=== PATIENT | male | born 1980 | race Hispanic/Latino ===

== ENCOUNTER 2016-08-02 11:43 | Observation (INO) | payer OTHER ==
[2016-08-02] VITALS (13 sets, daily range): BP systolic 103–142; BP diastolic 44–88; PULSE 74–88; RESP 14–22; O2SAT 96–100
[~2016-08-02] VITALS: Ht 170.2 cm; Wt 100.0 kg
[~2016-08-02 11:43] MED LIST: Glycopyrrolate 0.2 MG/ML 1mL Inj ONE; Neostigmine 1 mg/mL 10 mL Inj ONE; Ondansetron 2 mg/mL 2 mL Inj ONE; Propofol 10,000 mCg/mL 20 mL Inj ONE; fentaNYL-PF 50 mCg/mL 2 mL Inj ONE
[2016-08-02] MEDS ORDERED: 0.9% Sodium Chloride 1,000 ML IV ONE (11:58)
[2016-08-02] MEDS ORDERED: Ondansetron 2 mg/mL 2 mL Inj ONE (11:58)
--- NOTE | 2016-08-02 11:58 | ED.REPORT ---
HPI-Abd Pain M Under 38 Date of Service Aug 02, 2016 ED Provider: Favio Verduzco MD The patient is an otherwise healthy 35 year old male who presents to the emergency department complaining of diffuse abdominal pain that began suddenly yesterday evening around 1700. His pain is located to his RLQ. He describes the pain as cramping and sharp. His pain has been constant. Since onset he has also experienced nausea, vomiting, diarrhea, decreased appetite, and difficulty urinating. He is unable to keep anything down including liquids. He had similar symptoms a few years ago and was evaluated but no dangerous cause was found. He has not had any previous abdominal surgeries. Nursing Notes Stated Complaint: ABDOMINAL PAIN Chief Complaint: Male Abdominal Pain Nursing Notes Reviewed: Yes Allergies: Coded Allergies: No Known Allergies (Verified Allergy, Unknown, 08/02/16) No Active Prescriptions or Reported Meds General Time Seen by MD: 11:58 Chief Complaint Abdominal pain Hx Obtained From: Patient, Spouse Arrived By: Walk-in Sudden in Onset?: Yes Onset Occurred: Yesterday Symptom Duration: Since onset Progression since Onset: Constant, Gradually worsening Location: : Diffuse Quality: Painful Radiation: : Does not radiate Severity: Current: Moderate Severity: Maximum: Moderate Associated with: Reports: Anorexia, Diarrhea, Vomiting Additional Notes: +difficulty urinating Pertinent Negative: Pt denies other symptoms Recent Healthcare: No recent doctor visit, No recent hospitalization Similar Sx Previous: Yes Past Medical History Past Medical History Notes: No PCP Past Medical History denies Past Surgical History denies Family History Noncontributory Smoking History Never Smoker Social History Alcohol Use: "Social" Drug Use: Denies drug use Other Social History: Good social support, , Lives with children, Local resident Ambulatory Status Independent Review of Systems Review of Systems Note: +difficulty urinating GI: Reports: Abdominal pain, Anorexia, Diarrhea, Nausea, Vomiting Complete sys rev & neg: except as marked. Physical Exam Initial Vital Signs Vital Signs (First) Date Time Temp Pulse Resp B/P Pulse Ox O2 Delivery O2 Flow Rate FiO2 08/02/16 11:45 35.9 83 16 129/81 99 Room Air Initial VS: Reviewed Head / Eyes: Atraumatic, Normocephalic, PERRL ENT: Mucous membranes moist, Conjunctiva normal, No scleral icterus Neck: Supple, Non-tender, Full range of motion Lymphatic: No lymphadenopathy Extremities: Vascular intact, Neuro intact, No swelling, No tenderness Skin: Warm, Dry, No cyanosis Neurologic: Alert, Oriented, Nonfocal Psychiatric: Mood/affect normal, Behavior normal, Normal thought content General/Constitutional: Awake, Alert, No acute distress, Well appearing Respiratory / Chest: Atraumatic, Breath sounds NL, Breath sounds = bilat, No respiratory distress, No rales, No rhonchi, No wheezing, No stridor Cardiovascular: Heart rate NL, Regular rhythm, Heart sounds NL, No murmurs, No rubs, Peripheral circulation NL Abdomen: Soft, No guarding, No rebound, BS normoactive, No distention, No hernia, No palpable mass, No pulsatile mass Tenderness/Guarding/Rebound: Positive: Tender RLQ... (tenderness is most notable in the RLQ), Tender diffuse (mild) Back: Inspection NL, Non-tender, No CVA tenderness Male Genitourinary: Atraumatic, Inspection NL, Penis NL, No meatal blood, Testes NL Uncircumcised penis. Lower Extremity / Pelvis / MS: Neurologic intact, Vascular intact, No edema, Gait NL No calf swelling or tenderness Interpretation & Diagnostics Lab Results Interpretation Result Diagram: 08/02/16 1155 08/02/16 1155 Test 08/02/16 11:55 08/02/16 12:31 White Blood Count 12.6th/mm3 (3.8-10.1) Red Blood Count 5.21mil/mm3 (4.40-5.80) Hemoglobin 15.1g/dL (13.8-17.2) Hematocrit 43.8% (41.0-50.0) Mean Corpuscular Volume 84.1fL (81-100) Mean Corpuscular Hemoglobin 29.0pg (27.0-35.0) Mean Corpuscular Hemoglobin Concent 34.5% (32.0-37.0) Red Cell Distribution Width 12.3% (12.3-15.4) Platelet Count 295bil/L (150-400) Neutrophils (%) (Auto) 87.6% (40-74) Lymphocytes (%) (Auto) 9.1% (14-46) Monocytes (%) (Auto) 2.8% (4-12) Eosinophils (%) (Auto) 0% (0-5) Basophils (%) (Auto) 0.1% (0-3) Sodium Level 135mEq/L (134-144) Potassium Level 3.8mEq/L (3.5-5.2) Chloride Level 94mEq/L (97-108) Carbon Dioxide Level 22mmol/L (18-29) Blood Urea Nitrogen 16mg/dL (6-20) Creatinine 0.86mg/dL (0.76-1.27) Estimat Glomerular Filtration Rate 106mL/min (>59) Glucose Level 159mg/dL (60-99) Calcium Level 9.3mg/dL (8.5-10.1) Magnesium Level 2.2mg/dL (1.6-2.6) Total Bilirubin 0.6mg/dL (0.0-1.2) Aspartate Amino Transf (AST/SGOT) 26U/L (0-50) Alanine Aminotransferase (ALT/SGPT) 59U/L (0-44) Alkaline Phosphatase 70U/L (25-150) Total Protein 8.2g/dL (6.4-8.4) Albumin 4.6g/dL (3.4-5.0) Lipase 459U/L (13-60) Hold Celestin Top Tube Received (Received) Urine Color Yellow (YELLOW) Urine Appearance Hazy (CLEAR,HAZY) Urine pH 7.0 (5.0-8.0) Urine Specific [place] 1.020 (1.003-1.035) Urine Protein Negativemg/dL (NEG,TRACE) Urine Glucose (UA) Negativemg/dL (NEGATIVE) Urine Ketones Negativemg/dL (NEGATIVE) Urine Occult Blood Negative (NEGATIVE) Urine Nitrite Negative (NEGATIVE) Urine Bilirubin Negative (NEGATIVE) Urine Urobilinogen Normalmg/dL (NORMAL) Urine Leukocyte Esterase Negative (NEGATIVE) Urine RBC 3-10/hpf (0-2) Urine WBC 0-5/hpf (0-5) Urine Epithelial Cells Occasional/hpf (NONE-MOD) Urine Crystals None seen (NONE SEEN) Urine Bacteria None/hpf (NONE-FEW) Urine Hyaline Casts None/lpf (NONE) Urine Granular Casts None seen (NONE SEEN) Urine Waxy Casts None seen (NONE SEEN) Urine Red Blood Cell Casts None seen (NONE SEEN) Urine White Blood Cell Casts None seen (NONE SEEN) Urine Mucus Present (None Seen) Urine Trichomonas None seen (NONE SEEN) Urine Yeast None (NONE SEEN) Urinalysis Comment None Urine Culture Reflexed Not indicated CT Abd / Pelvis Interpretation IMPRESSION: 1. Findings compatible with acute appendicitis. 2. Hepatic steatosis. Dictated by: Radha Pineda MD, PhD on 08/02/2016 at 14:28 Study type: Abdominal CT IV contrast Interpretation / Wet Read by: Interpret - Radiologist, Discussed w radiologist Re-Eval/Medical Decision Med Decision/Clinical Course In summary, the patient is a 35-year-old male with no significant past medical history who presents to the emergency department complaining of nausea, vomiting and right lower quadrant pain. Upon arrival he was afebrile stable vital signs and examination as above. Treated with IVF, Zofran, and Dilaudid, he reported moderate symptomatic improvement. Labs: leukocytosis of 12.6, CBC otherwise unremarkable, LOCOMOTIVE DRIVER unremarkable except mildly elevated ALT of 59, lipase elevated at 459, UA unconvincing for UTI. Bladder scan shows about [address] scan of the abdomen and pelvis demonstrated evidence of acute appendicitis with associated appendicolith. Spoke with the on-call surgeon, Dr. Reinoso. He will come and evaluate the patient and recommends starting him on Unasyn. He has been made nothing by mouth and is maintained on maintenance fluids. To be taken directly to the operating room for appendectomy. He was admitted to the surgical service in stable condition. Source of Hx: Old records Re-Evaluation/Progress : Time of Eval: 14:58 Re-Evaluation/Progress Note: Rechecked the patient. Discussed CT results, diagnosis, and plan for admission. All questions were addressed. Consultation : Referral / Consult Name: Patel Reinoso MD Consulted With: Surgeon Requested Call at: 14:53 Call Returned at: 14:54 Aircraft Machinist: Will see patient, Agrees with eval, Agrees with plan, Accepts admit Counseled Regarding: Diagnosis, Lab results, Need for admission Patient Discharge & Departure Primary Impression: Acute appendicitis Acute appendicitis type: unspecified acute appendicitis type Qualified Code: K35.80 - Unspecified acute appendicitis Additional Impressions: Leukocytosis Leukocytosis type: unspecified Qualified Code: D72.829 - Elevated white blood cell count, unspecified RLQ abdominal pain Disposition: ADMITTED TO HOSPITAL Discharge Condition All VS Reviewed: Yes Condition: Stable Referrals: Patel Stevenson MD (PCP) Scribe Attestation Portions of this note were transcribed by Krystal Jenkins. I, Dr. Verduzco personally performed the history, physical exam and medical decision-making; I reviewed and confirmed the accuracy of the information in the transcribed note. Signed by: Jacey Benitez, 08/02/2016 at 1510. copies to: Patel Stevenson MD, Beck O MD Aug 02, 2016 11:58 Krystal Jenkins Aug 02, 2016 12:05
[2016-08-02] MEDS: Ondansetron 2 mg/mL 2 mL Inj IVPUSH PRN ×2 (12:04→12:54)
[2016-08-02 12:22] LABS: BASOPHILS % (AUTO) 0.1 % (0-3); EOSINOPHILS % (AUTO) 0 % (0-5); MONOCYTES % (AUTO) 2.8 % (4-12); Mean Corpuscular Volume 84.1 fL (81-100); NEUTROPHILS % (AUTO) 87.6 % (40-74); Platelet Count 295 bil/L (150-400)
[2016-08-02] MEDS: HYDROmorphone 0.5 mg/0.5 mL iSecure Syringe IVPUSH PRN ×4 (12:22→16:21)
[2016-08-02 12:45] LABS: Magnesium 2.2 mg/dL (1.6-2.6)
[2016-08-02 13:25] LABS: APPEARANCE,URINE HAZY (CLEAR,HAZY); COLOR,URINE YELLOW (YELLOW); OCCULT BLOOD,URINE NEGATIVE (NEGATIVE); UROBILINOGEN,URINE NORMAL (NORMAL)
--- NOTE | 2016-08-02 14:52 | DRSVH ---
PROCEDURE: CT ABDOMEN AND PELVIS WITH CONTRAST ([id number]) INDICATIONS: rlq pain TECHNIQUE: After the administration of intravenous contrast, 5 mm thick sections acquired from the diaphragm to the symphysis. 5 mm coronal and sagittal reformats were acquired. For radiation dose reduction, the following was used: automated exposure control, adjustment of mA and/or kV according to patient siz e. COMPARISON: None. FINDINGS: Image quality: Excellent. ABDOMEN: Lung bases: Lung bases are clear. Heart size is normal. Solid organs: Liver and spleen are normal in size and enhancement. Diffuse infiltration of the liver is noted. Gallbladder is within normal limits. Biliary system is non dilated. Pancreas enhances no rmally. No adrenal nodules. Kidneys demonstrate normal size and enhancement, without hydronephrosis . Peritoneum and bowel: Bowel loops demonstrate normal wall thickness and caliber. No free fluid or a ir. The appendix is enlarged to 1.9 cm in maximum diameter. Mild inflammatory changes noted adjacent to the appendix. A 1 cm diameter appendicolith is noted in the base of the appendix. A 6 mm in diamet er appendicolith is noted in the appendix near the tip. Nodes and vessels: No retroperitoneal or mesenteric adenopathy by size criteria. Aorta and inferior vena cava are normal in size. Miscellaneous: No ventral hernias. PELVIS: Genitourinary: Bladder wall thickness is normal. Miscellaneous: No inguinal hernias or adenopathy. Bones: No suspicious bony lesions. No vertebral body compression fractures. IMPRESSION: 1. Findings compatible with acute appendicitis. 2. Hepatic steatosis. Dictated by: Radha Pineda MD, PhD on 08/02/2016 at 14:28 Approved by: Radha Pineda MD, PhD on 08/02/2016 at 14:51
[2016-08-02] MEDS ORDERED: Alum-Mag Hydrox-Simeth 30 mL Suspension PO PRN (15:00)
[2016-08-02] MEDS ORDERED: Ampicillin-Sulbactam Inj 3,000 MG in 0.9% Sodium Chloride 100 ML IV ONE (15:00)
[2016-08-02] MEDS ORDERED: Ondansetron 2 mg/mL 2 mL Inj IVPUSH PRN ×2 (15:00→16:55)
[2016-08-02] MEDS ORDERED: Lactated Ringer's 1,000 ML IV SCH ×2 (15:00→16:51)
[2016-08-02] MEDS ORDERED: Lactated Ringer's 1,000 ML IV ONE ×2 (16:23→16:51)
[2016-08-02] MEDS ORDERED: Lactated Ringer's 500 ML IV PRN (16:51)
[2016-08-02] MEDS ORDERED: Atropine 0.4 mg/mL Inj IVPUSH PRN (16:55)
[2016-08-02] MEDS ORDERED: fentaNYL-PF 50 mCg/mL 2 mL Inj IVPUSH PRN (16:55)
[2016-08-02] MEDS ORDERED: EPHEDrine Sulfate 50 mg/mL Inj IVPUSH PRN (16:55)
[2016-08-02] MEDS ORDERED: Phenylephrine 10,000 mCg/mL Inj IVPUSH PRN (16:55)
[2016-08-02] MEDS ORDERED: HYDROmorphone 1 mg/mL Inj IVPUSH PRN (16:55)
[2016-08-02] MEDS ORDERED: hydrALAZINE 20 mg/mL Inj IVPUSH PRN (16:55)
[2016-08-02] MEDS ORDERED: Dexamethasone 4 mg/mL Inj IVPUSH PRN (16:55)
[2016-08-02] MEDS ORDERED: Labetalol 5 mg/mL 4 mL Inj IV PRN (16:55)
--- NOTE | 2016-08-02 17:11 | PCM.HPANE ---
Patient Data Surgeon Admitting Provider:Patel Reinoso MD Attending Provider:Patel Reinoso MD Primary Care Physician:Patel Stevenson MD Other Provider:Lorena Lassiter Anesthesia Reason for Visit Acute Appendicitis Ht/WT & BMI Height (Feet): 5 Height (Inches): 7 Weight (Kilograms): 100 Body Mass Index Allergies Coded Allergies: No Known Allergies (Verified Allergy, Unknown, 08/02/16) Past Anesthesia History Anesthesia History: Denies:: Anesthesia Reactions (n/a) Diabetes History Hx Diabetes?: No MRSA MRSA: No Medications No Active Prescriptions or Reported Meds History History of ENT Problems?: No Hx of Heart Problems?: No Cardiovascular History: Denies:: Congestive Heart Failure Hypertension Hx of Respiratory Problem?: Yes Respiratory History: Denies:: Tuberculosis Other Resp Pertinent History: hx of reactive airway Hx Neurologic Problems?: No Hx of GI Problems?: No Hx of Problems?: No Male Hx: Denies:: Prostate Problems Scrotal Mass Testicular Surgery Hx Musculoskeletal Problems?: No Hx of Psycho/Social Problems?: No Hx Surgeries?: No Hx Any Other Health Problems?: No Other History: Denies:: Cancer Hospitalization Thyroid Disease History Blood Transfusions: Positive for:: Accept Blood Products? Denies:: Blood Transfusions Hx Diabetes: No Hx Alcohol Use: Yes (OCCASIONAL)Hx Substance Use: No (declines) Smoking Status: Never Smoker Stop/Bang Treated for Sleep Apnea?: No Do You Have a CPAP Machine?: No S-Snoring: Do You Snore Loudly: No T-Tired: feel tired, fatigued: No O-Obsered: Observed not breath: No P-Blood Pressure: treated: No A- Age over 50: No N- Neck Large Circumference: No G- Gender Male: Yes Risk Assessment Category Category 1A: Patient has history of documented sleep apnea, and HAS NOT received any narcotic, sedative or anesthesia administration during this stay. Category 1B: Patient has history of documented sleep apnea, and HAS received any narcotic , sedative or anesthesia administration during this stay Category 2: Patient has SUSPECTED Obstructive Sleep Apnea, and HAS received any narcotic , sedative or anesthesia administration during this stay. Category 3: Patient has SUSPECTED Obstructive Sleep Apnea and HAS NOT received narcotic, sedative or anesthesia administration during this stay. Category 4: Outpatient in Procedural Areas with known sleep apnea or who screen positive for High Risk via the STOP/BANG questionnaire. Exam Exam Vital Signs Vital Signs Date Time Temp Pulse Resp B/P Pulse Ox O2 Delivery O2 Flow Rate FiO2 08/02/16 16:43 36.9 83 18 135/88 97 Room Air 08/02/16 15:55 36.9 83 18 135/88 97 Room Air 08/02/16 14:03 74 18 125/82 99 08/02/16 11:45 35.9 83 16 129/81 99 Room Air General Appearance: Alert, Oriented X3, Cooperative HEENT/AIRWAY: MP 2, Neck Movement (THICK, FROM), Mouth Opening (Moderate with One dental implant front upper) Lungs: Clear to Auscultation Heart: Exam Unremarkable Meds/Labs/Diagnostics Admission Meds Current Medications Sodium Chloride 1,000 ml @ 0 mls/hr Q0M ONCE IV Last administered on 12:03; Start 08/02/16 at 11:58; Stop 08/02/16 at 12:00; Status DC Ampicillin Sodium/ Sulbactam Sodium 3000 mg/Sodium Chloride 100 ml @ 200 mls/ hr ONCE ONCE IV Last administered on 08/02/16 16:57; Start 08/02/16 at 15:00 ; Stop 08/02/16 at 15:29; Status DC Lactated Ringer's (Lr) 1,000 ml @ ud STK-MED ONCE IV Last administered on 08/02 16:51; Start 08/02/16 at 16:51; Stop 08/02/16 at 17:02; Status DC Labs Test 08/02/16 11:55 08/02/16 12:31 White Blood Count 12.6th/mm3 (3.8-10.1) Red Blood Count 5.21mil/mm3 (4.40-5.80) Hemoglobin 15.1g/dL (13.8-17.2) Hematocrit 43.8% (41.0-50.0) Mean Corpuscular Volume 84.1fL (81-100) Mean Corpuscular Hemoglobin 29.0pg (27.0-35.0) Mean Corpuscular Hemoglobin Concent 34.5% (32.0-37.0) Red Cell Distribution Width 12.3% (12.3-15.4) Platelet Count 295bil/L (150-400) Neutrophils (%) (Auto) 87.6% (40-74) Lymphocytes (%) (Auto) 9.1% (14-46) Monocytes (%) (Auto) 2.8% (4-12) Eosinophils (%) (Auto) 0% (0-5) Basophils (%) (Auto) 0.1% (0-3) Sodium Level 135mEq/L (134-144) Potassium Level 3.8mEq/L (3.5-5.2) Chloride Level 94mEq/L (97-108) Carbon Dioxide Level 22mmol/L (18-29) Blood Urea Nitrogen 16mg/dL (6-20) Creatinine 0.86mg/dL (0.76-1.27) Estimat Glomerular Filtration Rate 106mL/min (>59) Glucose Level 159mg/dL (60-99) Calcium Level 9.3mg/dL (8.5-10.1) Magnesium Level 2.2mg/dL (1.6-2.6) Total Bilirubin 0.6mg/dL (0.0-1.2) Aspartate Amino Transf (AST/SGOT) 26U/L (0-50) Alanine Aminotransferase (ALT/SGPT) 59U/L (0-44) Alkaline Phosphatase 70U/L (25-150) Total Protein 8.2g/dL (6.4-8.4) Albumin 4.6g/dL (3.4-5.0) Lipase 459U/L (13-60) Hold Celestin Top Tube Received (Received) Urine Color Yellow (YELLOW) Urine Appearance Hazy (CLEAR,HAZY) Urine pH 7.0 (5.0-8.0) Urine Specific [place] 1.020 (1.003-1.035) Urine Protein Negativemg/dL (NEG,TRACE) Urine Glucose (UA) Negativemg/dL (NEGATIVE) Urine Ketones Negativemg/dL (NEGATIVE) Urine Occult Blood Negative (NEGATIVE) Urine Nitrite Negative (NEGATIVE) Urine Bilirubin Negative (NEGATIVE) Urine Urobilinogen Normalmg/dL (NORMAL) Urine Leukocyte Esterase Negative (NEGATIVE) Urine RBC 3-10/hpf (0-2) Urine WBC 0-5/hpf (0-5) Urine Epithelial Cells Occasional/hpf (NONE-MOD) Urine Crystals None seen (NONE SEEN) Urine Bacteria None/hpf (NONE-FEW) Urine Hyaline Casts None/lpf (NONE) Urine Granular Casts None seen (NONE SEEN) Urine Waxy Casts None seen (NONE SEEN) Urine Red Blood Cell Casts None seen (NONE SEEN) Urine White Blood Cell Casts None seen (NONE SEEN) Urine Mucus Present (None Seen) Urine Trichomonas None seen (NONE SEEN) Urine Yeast None (NONE SEEN) Urinalysis Comment None Urine Culture Reflexed Not indicated Plan Impression Patient chart reviewed, patient interviewed and anesthestic plan with risks, benefits, and alternatives discussed, and informed consent obtained. ASA Physical Status: ASA1 Normal Healthy Anesthetic Plan: GA Bene/Risks/Altern/Consents: Yes HP Complete Prior to Induction: Yes Rich Flores MD Aug 02, 2016 17:11
[2016-08-02] MEDS ORDERED: Bupivacaine-MPF 0.5% W/EPI 30 mL Inj INFILTRATE ONE (17:12)
[2016-08-02] MEDS ORDERED: Sodium Chloride LOK Flush 10 mL Syringe IVFLUSH PRN (17:45)
--- NOTE | 2016-08-02 17:51 | PCM.SURGOP ---
Surgical Operative Report Date of Service: Aug 02, 2016 Pre Operative Diagnosis Acute appendicitis Post Operative Diagnosis Same with focal gangrene, nonruptured Procedure: Laparoscopic appendectomy Surgeon and Glaze Carrier: Surgeon: Patel Reinoso MD Assistants: Dex Jaime PA-C Indication for Procedure 35-year-old man who presented with severe abdominal pain since yesterday evening. He had an elevated white blood cell count to 12,000. A CT scan of the abdomen and pelvis showed a markedly dilated appendix to 1.9 cm with a 1 cm appendicolith base, with inflammatory changes, but no evidence of perforation. After discussion of risks and benefits, he agreed to proceed with appendectomy. Findings: The appendix was markedly dilated. There was focal gangrenous changes at the tip, but it was unruptured. Procedure Details After smooth induction of general anesthesia, the patient was placed in the supine position with the left arm tucked. The abdomen was prepped and draped in wide sterile fashion. A procedural pause was performed according to the SCOAP checklist, and all were found to be in agreement. A curvilinear infraumbilical incision was made. Dissection was carried down to electrocautery until the midline fascia was incised vertically and the peritoneal cavity was entered without difficulty. Pneumoperitoneum was established. Two additional ports were placed under visualization. A 5 mm port was placed in the midline above the symphysis pubis, and a 12 mm port in the left lower quadrant, lateral to the inferior epigastric vessels. The patient was placed head down with the right side up. The small bowel was retracted. The greater omentum was retracted. The appendix was visualized, which had some fibrinous exudate. It was bluntly mobilized and retracted. A window was created at the base of the appendix in the mesoappendix. The appendiceal stump was then divided using an Endo TAMIKA stapler with a 45 mm blue load. The mesoappendix was divided with a vascular load. The appendix was placed into an Endo Catch bag. The right lower quadrant was inspected. The appendiceal stump was intact and the mesoappendix was hemostatic. The appendix was removed and passed off the field for permanent pathology. The 12 mm port was removed. The fascia of the 12 mm port site was closed using an inlet closure device with an 0 Vicryl suture. The remaining ports were removed under visualization and pneumoperitoneum was released. The skin incisions were closed using running 4-0 Monocryl subcutaneous stitches. Steri-Strips and sterile dressings were applied. At the end of the case all needle and sponge counts were correct 2. The patient was awakened from anesthesia without difficulty, and taken to the recovery room in satisfactory condition, having tolerated the procedure well. Complications There were no periprocedural complications identified. Surgical Specimen Removed: Yes Specimen sent to Pathology: Yes Surgical Specimen description: Appendix Anesthetic Plan: GA Grafts, Implants: None Output, Estimated Blood Loss: 10 Blood Administration during camacho: No Drains: None Catheters: None Patel Reinoso MD Aug 02, 2016 17:51
[2016-08-02] MEDS: Acetaminophen IV 1,000 MG in IV Premix 1 EACH IV SCH ×2 (18:00→18:25)
--- NOTE | 2016-08-02 18:06 | PCM.ANEP1 ---
Post Anesthesia Phase 1 PACU Phase 1 Assessment Date of Service: Aug 02, 2016 Vital Signs Vital Signs Date Time Temp Pulse Resp B/P Pulse Ox O2 Delivery O2 Flow Rate FiO2 08/02/16 16:43 36.9 83 18 135/88 97 Room Air 08/02/16 15:55 36.9 83 18 135/88 97 Room Air 08/02/16 14:03 74 18 125/82 99 08/02/16 11:45 35.9 83 16 129/81 99 Room Air Anesthetic Administered: GA Level of Alertness: Awake, talking ELDRIDGE's with Equal Strength: Yes Pain: Yes Nausea or Vomiting: No Oxygen Delivery: Room Air Lungs: Normal Air Movement Rich Flores MD Aug 02, 2016 18:06
--- NOTE | 2016-08-02 18:39 | HP ---
[address] [address] HISTORY AND PHYSICAL PATIENT: AGUSTIN MURPHY : 1980 MR#: [id number] ADMIT: 08/02/2016 JOB ID: [id number] CHIEF COMPLAINT: Abdominal pain. HISTORY OF PRESENT ILLNESS: The patient is a 35-year-old man who presented to the emergency department with severe abdominal pain that started yesterday around 5:00 p.m. The pain has been somewhat difficult for him to characterize. At times it bothers him in the right lower quadrant, suprapubic area, periumbilical. The pain has been increasing. He cannot seem to find a comfortable position. He has not had fevers or chills. He did have some vomiting. He has not had diarrhea or blood in his stool. He also complains of difficulty urinating, urinating in small amounts. There has been no blood in the urine. He had a CT scan of the abdomen and pelvis in the emergency department which showed a very abnormal appendix, which was dilated to 1.9 cm with inflammatory changes and a 1 cm appendicolith near the base. He also had hepatic steatosis. PAST MEDICAL HISTORY: None. PAST SURGICAL HISTORY: None. MEDICATIONS: None. ALLERGIES: No known drug allergies. SOCIAL HISTORY: He drinks 3-4 beers each weekend, denies tobacco use, no illicit drug use. He works as a director construction services. FAMILY HISTORY: Noncontributory. REVIEW OF SYSTEMS: A 10-point review of systems is negative except as described in history of present illness. PHYSICAL EXAMINATION: Body mass index 34.5, temperature 36.9, pulse 83, blood pressure 135/88, saturation 97% on room air. General: He is resting in bed on his left side, in mild distress. HEENT: Sclerae are anicteric. Mucous membranes are moist. Neck: No lymphadenopathy. Chest; Clear to auscultation bilaterally. Heart: Regular rate and rhythm. No murmurs. Abdomen is obese, tender in the right lower quadrant with involuntary guarding. There are no palpable masses. There are no hernias. Extremities: No edema: Neuro: No deficits. Psych: Affect is appropriate. LABORATORIES: White count is 12.6, hematocrit 43.8, platelets 295. Differential is 87.6% neutrophils. Creatinine 0.86, glucose 159. Bilirubin 0.6, AST 26, ALT 59, alkaline phosphatase 70, albumin 4.6. Lipase is 459. Urinalysis is negative. IMAGING: As described in the history of present illness. ASSESSMENT/PLAN: A 35-year-old, obese man with acute appendicitis with an appendicolith, and an elevated lipase of unclear etiology. I do not think that the lipase level is directly related to his illness, and may be reactive. We have talked about the pathophysiology of appendicitis. I recommend a laparoscopic appendectomy. That should be done tonight. Technical aspects of surgery were discussed. Risks of surgery were discussed, including, but not limited to, bleeding, infection, injury to other structures, conversion to open surgery. All his questions were answered. We will proceed with surgery this evening.
--- NOTE | 2016-08-02 20:09 | PCM.ANEP2 ---
Post Anesthesia Evaluation ASA/CMS Post Anesthesia VS in Patient's Normal Range?: Yes Resp Stable; Airway Patent?: Yes CV Function & Hydration Stable: Yes Mental Status Recovered?: Yes Pain control Satisfactory?: Yes N/V Control Satisfactory?: Yes Rich Flores MD Aug 02, 2016 20:09
[2016-08-02] MEDS: Dextrose 5% Lactated Ringer's 1,000 ML IV SCH (20:23)
[2016-08-03] MEDS: Heparin 5,000 Unit/mL Inj SUBQ SCH ×2 (00:47→08:44)
[2016-08-03] MEDS: Acetaminophen IV 1,000 MG in IV Premix 1 EACH IV SCH (00:47)
[2016-08-03 00:51] VITALS: BP_SYST 135; BP_SYST 145; BP_DIAS 78; PULSE 79; RESP 16; O2SAT 96
[2016-08-03] MEDS: Dextrose 5% Lactated Ringer's 1,000 ML IV SCH ×2 (01:45→05:12)
[2016-08-03 04:06] VITALS: BP 102/56; PULSE 77; RESP 18; O2SAT 97
--- NOTE | 2016-08-03 04:29 | NUR ---
Transfer Patient arrived to unit at 1910, able to scoot onto bed. Patient A&O at time of arrival denied pain and/or nausea. Oriented to room by aide and sheets made available as family to accompany him over night. Pain continues to be managed, VSS.
[2016-08-03 05:43] LABS: Mean Corpuscular Hemoglobin 29.1 pg (27.0-35.0); Mean Corpuscular Volume 86.5 fL (81-100)
--- NOTE | 2016-08-03 08:17 | PCM.PNSURG ---
Subjective Visit Information: Reason for Visit Acute Appendicitis Surgery/Surgery Date Post-Op Day # Date of Admission: Aug 02, 2016 at 15:15 Hospital Day # Subjective: feels better than yesterday, tolerating diet, pain control via percocet; elevated lipase yesterday Objective Objective Awake Abd: soft, dressings intact Vital Sign- Last 8 Hours Date Time Temp Pulse Resp B/P Pulse Ox O2 Delivery O2 Flow Rate FiO2 08/03/16 04:06 36.6 77 18 102/56 97 Room Air 08/03/16 00:51 36.8 79 16 135/78 96 Room Air Intake and Output- Last 8 Hour 08/03/16 Cumulative From/Thru 07:00 08/02/16 11:45 - 08/03/16 06:22 Intake Total 1700 ml 3600 ml Output Total 630 ml 640 ml Balance 1070 ml 2960 ml Intake Oral 600 ml 600 ml IV Total 1100 ml 3000 ml Output Urine Total 630 ml 630 ml Estimated Blood Loss 10 ml # Bowel Movements 0 0 Result Diagram: 08/03/16 0525 08/03/16 0525 Assessment & Plan Impression POD #1 s/p lap appy Elevated lipase Problems: Plan Will repeat lipase level prior to d/c home F/U with Dr. Reinoso in 2-3 weeks OK to take home meds OK to shower Jacob White MD Aug 03, 2016 08:17
[2016-08-03] MEDS ORDERED: Polyethylene Glycol (PEG) 17 Gm Powder PO SCH (08:30)
--- NOTE | 2016-08-03 09:56 | PCM.DISURG ---
Surgical Discharge Instruction Date of Service Aug 03, 2016 Dates of Hospitalization Date of Hospital Admission Aug 02, 2016 at 15:15 Providers Admitting Physician: Patel Reinoso MD Primary Care Physician: Patel Stevenson MD Attending Physician: Patel Reinoso MD Discharge Diagnosis Discharge Diagnosis s/p lap appendectomy Post Operative diagnosis Same with focal gangrene, nonruptured Diet Discharge Diet: No restrictions Activity Discharge Activity-General: Balance rest and activity, Activity as pain allows , No lifting >15 pounds for 2 weeks, No driving while taking narcotic Dressing and Incisional Care Dressing Care: Keep dressing clean, dry & intact, Allow Steri Stripes to fall off Hygiene: May shower Additional Instructions Discharge Instructions Rx: oxycodone (#15), colace Call Dr Reinoso office on Friday for work release OK to take home meds Follow Up Plan Follow-up Provider (F9): Adeline Le PAC Follow-up appointment: Weeks (2-3) Call your provider for: Fever, Shortness of breath, Increasing abdominal pain, Vomiting, Discharge @ incision, pus discharge Jacob White MD Aug 03, 2016 09:56
--- NOTE | 2016-08-03 10:57 | NUR ---
Discharge: Pt eating well, and pain under control with oxycodone. Iv dc'd cannula intact. Pt up and moving. All dc instructions given and hard copy scripts given to patient. Ride called. All instructions with acknowledgement of understanding by patient.
--- NOTE | 2016-08-03 10:59 | NUR ---
Social Work Note: Screen Note Data & Assessment: EMR reviewed. Patient is a 35 year old female admitted on 08/03/16 for Acute Appendicitis. Patient's insurance is [email or web address] and sees Patel Stevenson MD for primary care. Pt lives in [place] with family and is independent at baseline. Pt is currently SBA in her room. No discharge needs identified at this time. SW to continue to follow if any needs arise. Plan: Anticipated discharge home via POV when medically ready. No discharge needs identified at this time. SW to continue to follow if any needs arise. Brea Lopez, GRAHAM, ACM
--- NOTE | 2016-08-05 09:20 | PCM.DC.SUR ---
Discharge Summary Date of Service: Date of Hospital Admission: Aug 02, 2016 at 15:15 Date of Operation(s): August 02, 2016 Date of Discharge: August 03, 2016 Diagnosis at Time of Discharge Acute appendicitis Problems: Operation Laparscopic appendectomy Brief History and Physical: The patient is a 35-year-old man who presented to the emergency department with severe abdominal pain that started yesterday around 5:00 p.m. The pain has been somewhat difficult for him to characterize. At times it bothers him in the right lower quadrant, suprapubic area, periumbilical. The pain has been increasing. He cannot seem to find a comfortable position. He has not had fevers or chills. He did have some vomiting. He has not had diarrhea or blood in his stool. He also complains of difficulty urinating, urinating in small amounts. There has been no blood in the urine. He had a CT scan of the abdomen and pelvis in the emergency department which showed a very abnormal appendix, which was dilated to 1.9 cm with inflammatory changes and a 1 cm appendicolith near the base. He also had hepatic steatosis. Consultants: General surgery: Dr. Patel Reinoso [facility] Course: Visit Information: Reason for Visit: Acute Appendicitis Subjective: feels better than yesterday, tolerating diet, pain control via percocet; elevated lipase yesterday Objective Awake Abd: soft, dressings intact Vital Sign- Last 8 Hours Date Time Temp Pulse Resp B/P Pulse Ox O2 Delivery O2 Flow Rate FiO2 08/03/16 04:06 36.6 77 18 102/56 97 Room Air 08/03/16 00:51 36.8 79 16 135/78 96 Room Air Intake and Output- Last 8 Hour 08/03/16 Cumulative From/Thru 07:00 08/02/16 11:45 - 08/03/16 06:22 Intake Total 1700 ml 3600 ml Output Total 630 ml 640 ml Balance 1070 ml 2960 ml Intake Oral 600 ml 600 ml IV Total 1100 ml 3000 ml Output Urine Total 630 ml 630 ml Estimated Blood Loss 10 ml # Bowel Movements 0 0 Impression POD #1 s/p lap appy Elevated lipase Plan Will repeat lipase level prior to d/c home F/U with Dr. Reinoso in 2-3 weeks OK to take home meds OK to shower Pathology: Pending Follow-up Plan: Follow-up Provider : Adeline Le PAC Follow-up appointment: Weeks (2-3) No Active Prescriptions or Reported Meds copies to: Patel Stevenson MD, Sherri L PA-C Aug 05, 2016 09:20
--- NOTE | 2016-08-06 11:14 | PATH ---
SURGICAL PATHOLOGY Attending Physician:Palma Willis CASE STATUS: Signed Out PATIENT NAME: AGUSTIN MURPHY PID: [id number] : 1980 DATE COLLECTED:08/02/2016 23:49 SPECIMEN: Appendix CLINICAL HISTORY: APPENDIX FINAL DIAGNOSIS: 1.APPENDIX: ACUTE APPENDICITIS. NO EVIDENCE OF MALIGNANCY. ICD10 CODE K35.80 GROSS DESCRIPTION: Received in formalin, labeled with the patient' s name and "appendix", is one appendix with a small amount of attached fatty tissue. The appendix measures 7.5 x 2.0 x 1.5 cm. The serosal surface is smooth and glistening. Sectioning reveals the wall to measure 0.1 cm in thickness and the lumen distended to 1.2 cm in diameter and filled with a thick, red, creamy substance. There is a foul odor. Tour[employer] sections are submitted in cassettes 1A, 1B, and 1C. ([id number]) MICRO DESCRIPTION: See diagnosis. ICD-9 CODES: CPT CODES: 1: 99554 Electronically Signed Out Aissatou Hylton MD [facility] [address], [place] [address] Technical component performed at [facility], [address] [place] [address] Ave[address], [address]
== END 2016-08-03 11:15 | disposition home or self-care (01) ==
LOC: SED 11:43 → OSC 15:15
PROVIDERS: ADMIT Student in an Organized Health Care Education/Training Program; ATTEND Student in an Organized Health Care Education/Training Program
PROC: 0DTJ4ZZ Resection of Appendix, Percutaneous Endoscopic Approach (ICD-10-PCS; principal; 2016-08-02 17:15)
DX: K35.80 Unspecified acute appendicitis (principal); E66.9 Obesity, unspecified; Z68.34 Body mass index [BMI] 34.0-34.9, adult
CPT/HCPCS: 36415; 44970; 51798; 74177; 80048; 80053; 81000; 83690; 83735; 85025; 85027; 96361; 96374; 96375; 96376; 99285; G0378; J0131; J0295; J1170; J1644; J1885; J2250; J2405; J2710; J3010; J7030; J7120; Q9967